=== PATIENT | female | born 1990 | race Hispanic/Latino ===

== ENCOUNTER 2025-03-23 15:55 | Emergency (ER) | payer SELFPAY ==
[2025-03-23 18:09] LABS: #Basophils Less than 0.03 10x3/uL (0.0-0.2); #Eosinophils 0.15 10x3/uL (0.0-0.7); #Monocytes 0.56 10x3/uL (0.11-0.59); #Neutrophils 5.99 10x3/uL (1.40-6.50); %Basophils 0.2 % (0.0-1.0); %Eosinophils 1.6 % (0.0-10.0); %Lymphocytes 29.9 % (21.0-51.0); %Monocytes 5.8 % (0.0-10.0); %Neutrophils 62.2 % (42.0-75.0); Hematocrit 39.7 % (36.0-47.0); Hemoglobin 13.0 g/dL (12.0-16.0); Mean Corpuscular Hemoglobin 30.4 pg (27.0-31.0); Mean Corpuscular Volume 93.0 fL (78.0-98.0); Platelet Count 191 10x3/uL (130-400); Red Blood Cell (RBC) Count 4.27 mill/uL (4.20-5.40); White Blood Cell (WBC) Count 9.63 10x3/uL (4.8-10.8)
[2025-03-23 18:25] LABS: BHCG - Serum Negative (NEGATIVE); Pregs Control Bar Appear? YES (CONTROL BAR)
[2025-03-23 18:26] LABS: Pregs Control Background? CLEAR/WHITE (CLR/WHITE)
[2025-03-23 18:39] LABS: ALT (SGPT) Less than 7 U/L (Less than 34); AST (SGOT) 23 U/L (11-34); Albumin 4.2 g/dL (3.1-4.5); Alkaline Phosphatase 52 U/L (40-110); Anion Gap 13 mmol/L (10-20); BUN (Urea Nitrogen) 14 mg/dL (7.0-18.7); Bilirubin, Total 0.2 mg/dL (0.3-1.2); Calc. Creatinine Clearance 0 mL/min (70-130); Calcium 8.7 mg/dL (7.8-10.44); Carbon Dioxide 20 mmol/L (22-29); Chloride 108 mmol/L (98-107); Globulin 3.0 g/dL (2.4-3.5); Glucose 108 mg/dL (70-105); Lipase 31 U/L (8-78); Potassium 4.9 mmol/L (3.5-5.1); Sodium 136 mmol/L (136-145)
[2025-03-23] MEDS ORDERED: Ondansetron PF 4 MG/2 ML Vial ONE (18:49)
[2025-03-23] MEDS ORDERED: Dicyclomine 20 MG TAB ONE (19:13)
[2025-03-23 19:17] LABS: Bacteria/HPF None Seen HPF (None Seen); CAUTI Indications for Culture Pelvic or flank pain; Glucose, Urine (Dipstick) Normal (Negative); Leukocyte Negative Leu/uL (Negative); Protein, Urine (Dipstick) Negative (Neg-Trace); RBC/HPF None Seen HPF (0-3); Specific Gravity, Urine 1.013 (1.002-1.036); WBC/HPF 0-3 HPF (0-3)
[2025-03-23 19:31] LABS: Urine Culture Reflex No No
[2025-03-24 10:22] LABS: Chlamydia by PCR, Vaginal Swab Not Detected (NotDetected); GC by PCR, Vaginal Swab Not Detected (NotDetected)
== END 2025-03-23 21:04 | disposition home or self-care (01) ==
LOC: ERS 15:55
DX: N76.0 Acute vaginitis (principal); R10.13 Epigastric pain; R11.2 Nausea with vomiting, unspecified
CPT/HCPCS: 74176; 80053; 81001; 83690; 84703; 85025; 87480; 87491; 87510; 87591; 87660; 96361; 96374; 96375; J2270; J2405